=== PATIENT | female | born 1975 | race Caucasian/White ===

== ENCOUNTER 2020-01-17 07:18 | Outpatient (CLI) | payer BC ==
--- NOTE | 2020-01-17 15:21 | XRAY Report ---
Reason: ANKLE JOINT PAIN Procedure Date: 01/17/2020 Accession Number: [id number] / [id number] Procedure: XR - Ankle 3 View LT CPT Code: Final Report FULL RESULT: EXAM: LEFT ANKLE RADIOGRAPHY EXAM DATE: 01/17/2020 07:29 AM. CLINICAL HISTORY: ANKLE JOINT PAIN. COMPARISON: None. TECHNIQUE: 3 views. FINDINGS: Bones: Normal. No fractures or bone lesions. Joints: Normal. No effusion. No subluxations. The ankle mortise is normally aligned. Soft Tissues: Normal. No soft tissue swelling. IMPRESSION: Normal ankle radiography. [facility]
== END 2020-01-17 07:19 | disposition home or self-care (01) ==
LOC: DI 07:18
PROVIDERS: ATTEND Family Medicine
DX: M25.572 Pain in left ankle and joints of left foot (principal)